=== PATIENT | female | born 1975 | race Caucasian/White ===

== ENCOUNTER 2017-09-24 10:26 | Outpatient (CLI) | payer OTHER ==
--- NOTE | 2017-09-25 16:31 | Mammography Report ---
DATE OF SERVICE: 09/24/2017 DIGITAL SCREENING MAMMOGRAM: 09/24/2017 CLINICAL INDICATION: A 42-year-old, for baseline. TECHNIQUE: Routine CC and MLO projections were obtained of the breasts. FINDINGS: The breasts demonstrate scattered fibroglandular densities bilaterally. No suspicious masses, clustered microcalcifications, or regions of architectural distortion are identified. IMPRESSION: NEGATIVE EXAMINATION. RECOMMENDATION: ROUTINE ANNUAL SCREENING UNLESS OTHERWISE CLINICALLY INDICATED. BIRADS CATEGORY 1-NEGATIVE. STANDARD QUALIFYING STATEMENTS: 1. This examination was reviewed with the aid of Computer-Aided Detection (CAD). 2. A negative or benign imaging report should not delay biopsy if clinically suspicious findings are present. Consider surgical consultation if warranted. More than 5% of cancers are not identified by imaging. 3. Dense breasts may obscure an underlying neoplasm. TD: 09/25/2017 17:29
== END 2017-09-24 10:27 | disposition home or self-care (01) ==
LOC: DI 10:26
PROVIDERS: ATTEND Physician Assistant Medical
DX: Z12.31 Encounter for screening mammogram for malignant neoplasm of breast (principal)
CPT/HCPCS: 77067

== ENCOUNTER 2017-12-15 13:24 | Emergency (ER) | payer OTHER ==
[2017-12-15 13:51] VITALS: BP 141/100
[2017-12-15] MEDS ORDERED: PROPARACAINE 0.5% OPHTH DROPS 15 ML EACHEYE STA (13:51)
--- NOTE | 2017-12-15 14:02 | ED Physician Documentation ---
PD HPI OPHTHO - Stated complaint Stated Complaint: R EYE F/O - Chief complaint Chief Complaint: Heent - History obtained from History obtained from: Patient - History of Present Illness Timing - onset: How many hours ago (3) Timing - duration: Hours (3) Timing - details: Gradual onset Pain level max: 5 Pain level now: 3 Location: Right Quality / character: Burning, Aching Associated symptoms: Redness, Tearing, FB sensation Contributing factors: Other (thinks she may have cat hair in her eye.). No: Wears glasses, Wears contacts Recently seen: Not recently seen Review of Systems Eyes: denies: Decreased vision, Photophobia Nose: denies: Rhinorrhea / runny nose, Congestion Throat: denies: Sore throat PD PAST MEDICAL HISTORY - Past Medical History Past Medical History: No - Past Surgical History Past Surgical History: No - Present Medications Home Medications: Ambulatory Orders Medication Instructions Recorded Confirmed No Known Home Medications [No 12/15/17 12/15/17 Known Home Medications] - Allergies Allergies/Adverse Reactions: Allergies Allergy/AdvReac Type Severity Reaction Status Date / Time No Known Drug Allergies Allergy Verified 12/15/17 13:45 - Social History Does the pt smoke?: No Smoking Status: Never smoker Does the pt drink ETOH?: No Does the pt have substance abuse?: No - Immunizations Immunizations are current?: Yes - POLST Patient has POLST: No PD ED PE NORMAL - Vitals Vital signs reviewed: Yes - General General: Alert and oriented X 3, No acute distress - HEENT HEENT: Moist mucous membranes, Other (R eye conjunctival injection. No fluoroscein uptake. No visible FB. Eyelids everted. ) - Neck Neck: Supple, no meningeal sign - Cardiac Cardiac: RRR - Respiratory Respiratory: No respiratory distress, Clear bilaterally - Neuro Neuro: Alert and oriented X 3 Results - Vitals Vitals: Vital Signs - 24 hr 12/15/17 13:46 Temperature 36.4 C L Heart Rate 69 Respiratory 16 Rate Blood Pressure 141/100 H O2 Saturation 100 Oxygen O2 Source Room air PD MEDICAL DECISION MAKING - ED course Complexity details: considered differential, d/w patient ED course: Patient is a 42-year-old female who presents to the emergency department with foreign body sensation in the right eye. No visible foreign body under Worthington lamp examination, no fluorescein uptake. Symptoms resolved with proparacaine and eye irrigation with eyewash station. Reexamined and still no foreign body visible or any fluorescein uptake. We will continue supportive care and follow- up with her doctor. Normal vision. Patient counseled regarding signs and symptoms for which I believe and urgent re-evaluation would be necessary. Patient with good understanding of and agreement to plan and is comfortable going home at this time This document was made in part using voice recognition software. While efforts are made to proofread this document, sound alike and grammatical errors may occur. Departure - Departure Disposition: 01 Home, Self Care Clinical Impression: Eye foreign body Qualifiers: Encounter type: initial encounter Laterality: right Qualified Code(s): T15.91XA - Foreign body on external eye, part unspecified, right eye, initial encounter Condition: Good Instructions: ED Eye Particle Conjunctiva FB Rslv Follow-Up: your,doctor as needed. [Other] Comments: Return if you worsen. Your eye may be slightly irritated from the irrigation today. Discharge Date/Time: 12/15/17 14:51
[2017-12-15] MEDS ORDERED: SODIUM CHLORIDE INHALATION 3 ML NEB ONE (14:59)
== END 2017-12-15 14:51 | disposition home or self-care (01) ==
LOC: ED 13:24
DX: T15.91XA Foreign body on external eye, part unspecified, right eye, initial encounter (principal)
CPT/HCPCS: 99283; J3490

== ENCOUNTER 2017-12-30 08:29 | Outpatient (CLI) | payer OTHER ==
--- NOTE | 2017-12-30 10:22 | CT Report ---
CT ABDOMEN AND PELVIS WITHOUT CONTRAST: 12/30/2017 CT DOSE REDUCTION STATEMENT In accordance with CT protocol optimization, one or more of the following dose reduction techniques were utilized for this exam: automated exposure control, adjustment of mA and/or KV based on patient size, or use of iterative reconstructive technique. CLINICAL INDICATION: Right-sided flank pain. TECHNIQUE: Axial CT images of the abdomen and pelvis were obtained without oral or intravenous contrast. No previous CT is available for comparison. FINDINGS: Limited evaluation of the lung bases is unremarkable. ABDOMEN: The kidneys are unremarkable, without evidence of nephrolithiasis or hydronephrosis. No hydroureter is seen. The liver demonstrates a small cyst in the superior right lobe. The spleen, pancreas and adrenal glands are unremarkable. The gallbladder is not dilated. No bowel dilatation, free gas, or free fluid is present. No abdominal adenopathy is seen. PELVIS: The appendix is seen in the right lower quadrant, and is normal in caliber. Colonic diverticulosis is present, without CT evidence of diverticulitis. The distal ureters and urinary bladder are unremarkable. No free fluid or pelvic adenopathy is seen. Osseous structures demonstrate degenerative changes. IMPRESSION: NO EVIDENCE OF NEPHROLITHIASIS OR HYDRONEPHROSIS. NORMAL APPENDIX. DIVERTICULOSIS, WITHOUT CT EVIDENCE OF DIVERTICULITIS. TD: 12/30/2017 10:21
== END 2017-12-30 08:30 | disposition home or self-care (01) ==
LOC: DI 08:29
PROVIDERS: ATTEND Family Medicine
DX: R10.9 Unspecified abdominal pain (principal)
CPT/HCPCS: 74176

== ENCOUNTER 2018-09-28 10:01 | Emergency (ER) | payer OTHER ==
[2018-09-28 10:38] LABS: BASOPHILS # (AUTO) 0.1 10^3/uL (0.0-0.1); BASOPHILS % (AUTO) 0.8 %; EOSINOPHILS # (AUTO) 0.1 10^3/uL (0.0-0.7); EOSINOPHILS % (AUTO) 1.2 %; HGB - HEMOGLOBIN 13.4 g/dL (12.0-16.0); LYMPHOCYTES # (AUTO) 1.3 10^3/uL (1.5-3.5); MEAN CORPUSCULAR HGB CONC 33.7 g/dL (32.0-36.0); MEAN PLATELET VOLUME 8.7 fL (7.9-10.8); MONOCYTES # (AUTO) 0.4 10^3/uL (0.0-1.0); MONOCYTES % (AUTO) 5.1 %; NEUTROPHILS # (AUTO) 6.7 10^3/uL (1.5-6.6); NEUTROPHILS % (AUTO) 77.9 %; PLT - PLATELET COUNT 188 10^3/uL (130-450); RED BLOOD COUNT 4.46 10^6/uL (4.20-5.40); WHITE BLOOD COUNT 8.6 x10^3/uL (4.8-10.8)
[2018-09-28 10:52] LABS: ALBUMIN 3.8 g/dL (3.2-5.5); ALBUMIN/GLOBULIN RATIO 1.1 (1.0-2.2); BILIRUBIN,TOTAL 0.7 mg/dL (0.2-1.0); CALCIUM 8.7 mg/dL (8.5-10.3); CREATININE 0.9 mg/dL (0.4-1.0); TOTAL PROTEIN 7.3 g/dL (6.7-8.2)
--- NOTE | 2018-09-28 11:40 | ED Physician Documentation ---
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 Review of Systems Constitutional: denies: Fever Eyes: denies: Decreased vision Ears: denies: Ear pain Nose: denies: Congestion Throat: denies: Sore throat Cardiac: denies: Chest pain / pressure, Palpitations Respiratory: denies: Dyspnea, Cough GI: denies: Abdominal Pain, Nausea, Vomiting : denies: Dysuria, Frequency Skin: denies: Rash Musculoskeletal: denies: Neck pain, Back pain, Extremity pain Neurologic: reports: Syncope, Head injury. denies: Generalized weakness, Focal weakness, Numbness, Difficulty speaking, Confused, Altered mental status PD PAST MEDICAL HISTORY - Past Medical History Past Medical History: No - Past Surgical History Past Surgical History: No - Present Medications Home Medications: Ambulatory Orders Medication Instructions Recorded Confirmed No Known Home Medications 12/15/17 09/28/18 - Allergies Allergies/Adverse Reactions: Allergies Allergy/AdvReac Type Severity Reaction Status Date / Time No Known Drug Allergies Allergy Verified 09/28/18 10:25 - Social History Does the pt smoke?: No Smoking Status: Never smoker Does the pt drink ETOH?: No Does the pt have substance abuse?: No - Immunizations Immunizations are current?: Yes - POLST Patient has POLST: No PD ED PE NORMAL - Vitals Vital signs reviewed: Yes (hypertensive ) - General General: Alert and oriented X 3, No acute distress, Well developed/nourished - HEENT HEENT: PERRL, EOMI, Ears normal, Moist mucous membranes, Pharynx benign, Dentition benign, Other (there is a bump to the occiput on the right side without crepitence or step off. 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, No motor deficit, No sensory deficit, Normal speech Eye Opening: Spontaneous Motor: Obeys Commands Verbal: Oriented GCS Score: 15 - Psych Psych: Normal mood, Normal affect Results - Vitals Vitals: Vital Signs - 24 hr 09/28/18 09/28/18 09/28/18 10:09 10:30 11:30 Temperature 36.8 C Heart Rate 66 60 62 Respiratory 20 16 16 Rate Blood Pressure 135/105 H 126/91 H 132/100 H O2 Saturation 99 100 Oxygen O2 Source Room air - EKG (time done) 1009 Rate: Rate (enter#) (66) Rhythm: NSR Ischemia: Q waves Compare to prior EKG: Old EKG unavailable Computer interpretation: Agree with computer - Labs Labs: Laboratory Tests 09/28/18 09/28/18 09/28/18 10:14 10:31 10:31 WBC 8.6 RBC 4.46 Hgb 13.4 Hct 39.7 MCV 89.0 MCH 30.0 MCHC 33.7 RDW 13.0 Plt Count 188 MPV 8.7 Neut # (Auto) 6.7 H Lymph # (Auto) 1.3 L [place] # (Auto) 0.4 Eos # (Auto) 0.1 Baso # (Auto) 0.1 Absolute Nucleated RBC 0.00 Nucleated RBC % 0.0 Sodium 138 Potassium 3.7 Chloride 106 Carbon Dioxide 23 Anion Gap 9.0 BUN 10 Creatinine 0.9 Estimated GFR (MDRD) 68 L Glucose 105 H POC Whole Bld Glucose 99 Calcium 8.7 Total Bilirubin 0.7 AST 18 ALT 19 Alkaline Phosphatase 63 Total Protein 7.3 Albumin 3.8 Globulin 3.5 Albumin/Globulin Ratio 1.1 Lipase 30 Procedures - IVC sono (time) 1130 Bedside IVC sono: IVC measures (cm) (1.68), IVC collapsed c insp (cm) (0.98), Euvolemia PD MEDICAL DECISION MAKING - ED course Complexity details: reviewed results, re-evaluated patient, considered di ffcharleneial, d/w patient, d/w family ED course: 43-year-old female with a syncopal episode after a noxious stimuli with something burning her stomach has had a head injury associated with this and she appears well now. Departure - Departure Disposition: 01 Home, Self Care Clinical Impression: Syncope, vasovagal Condition: Stable Instructions: ED Syncope Vasovagal Follow-Up: Tammie Antoine PA [Primary Care Provider] - Forms: Activity restrictions Discharge Date/Time: 09/28/18 12:10
[2018-09-28 11:58] VITALS: BP 132/100
== END 2018-09-28 12:10 | disposition home or self-care (01) ==
LOC: ED 10:01
DX: R55 Syncope and collapse (principal)
CPT/HCPCS: 36415; 80053; 83690; 85025; 93005; 99283; 99284

== ENCOUNTER 2018-10-03 14:58 | Outpatient (CLI) | payer OTHER ==
--- NOTE | 2018-10-03 15:45 | XRAY Report ---
Reason: COCCYX PAIN Procedure Date: 10/03/2018 Accession Number: [id number] / [id number] Procedure: WCP - Sacrum/Coccyx CPT Code: FULL RESULT: EXAM: SACRUM AND COCCYX RADIOGRAPHY EXAM DATE: 10/03/2018 03:28 PM. HISTORY: Coccyx pain. COMPARISONS: None. TECHNIQUE: 2 views. FINDINGS: Alignment: Normal. The sacrum and coccyx are normally aligned. Bones: Normal. No fracture or bone lesion. Joints: Normal. The sacroiliac joints and visualized hips are within normal limits. Soft Tissues: Unremarkable. IMPRESSION: Normal sacrum and coccyx radiography. RADIA
== END 2018-10-03 14:59 | disposition home or self-care (01) ==
LOC: DI.WCP 14:58
PROVIDERS: ATTEND Physician Assistant
DX: M53.3 Sacrococcygeal disorders, not elsewhere classified (principal)
CPT/HCPCS: 72220

== ENCOUNTER 2018-10-04 23:56 | Outpatient (CLI) | payer OTHER | END 2018-10-04 23:57 | disposition EMS.NT | LOC: EMS 23:56 | PROVIDERS: ATTEND Surgery | DX: R10.9 Unspecified abdominal pain (principal); R19.7 Diarrhea, unspecified; R45.0 Nervousness ==

== ENCOUNTER 2018-10-05 00:58 | Emergency (ER) | payer OTHER ==
[2018-10-05] MEDS ORDERED: ONDANSETRON 4 MG/2 ML VIAL IVP STA (01:20)
[2018-10-05] MEDS ORDERED: KETOROLAC 15 MG/ML VIAL IVP STA (01:20)
--- NOTE | 2018-10-05 01:31 | ED Physician Documentation ---
PD HPI ABD PAIN - Stated complaint Stated Complaint: UPPER ABDOMINAL PAIN - Chief complaint Chief Complaint: Abd Pain - History obtained from History obtained from: Patient - History of Present Illness Timing - onset: How many hours ago (3) Timing - duration: Hours (3) Timing - details: Gradual onset Pain level max: 8 Pain level now: 8 Quality: Aching, Pain Location: RUQ, Epigastric Radiation: No: Chest, , Lower back, Left flank, Left shoulder, Right flank, Right shoulder, Upper back Improved by: Other (nothing) Worsened by: Eating (tacos tonight) Associated symptoms: Nausea. 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 : None HEENT: None Psych: None Musculoskeletal: None Derm: None - Past Surgical History Past Surgical History: No - Present Medications Home Medications: Ambulatory Orders Medication Instructions Recorded Confirmed Ondansetron Odt [Zofran] 4 mg TL Q6H PRN #10 tablet 10/05/18 - Allergies Allergies/Adverse Reactions: Allergies Allergy/AdvReac Type Severity Reaction Status Date / Time No Known Drug Allergies Allergy Verified 10/05/18 01:18 - Social History Does the pt smoke?: No Smoking Status: Never smoker Does the pt drink ETOH?: Yes Does the pt have substance abuse?: No - Immunizations Immunizations are current?: Yes - POLST Patient has POLST: No PD ED PE NORMAL - Vitals Vital signs reviewed: Yes - General General: Alert and oriented X 3, No acute distress, Well developed/nourished - HEENT HEENT: Moist mucous membranes - Neck Neck: Supple, no meningeal sign - Cardiac Cardiac: RRR, Strong equal pulses - Respiratory Respiratory: No respiratory distress, Clear bilaterally - Abdomen Abdomen: Soft, Non distended, Other (Tender palpation right upper quadrant but negative Larry sign) - Back Back: No CVA TTP, No spinal TTP - Derm Derm: Warm and dry - Extremities Extremities: No edema - Neuro Neuro: Alert and oriented X 3 - Psych Psych: Normal mood, Normal affect Results - Vitals Vitals: Vital Signs - 24 hr 10/05/18 10/05/18 10/05/18 01:07 01:33 01:58 Temperature 36.4 C L Heart Rate 72 51 L 53 L Respiratory 18 17 17 Rate Blood Pressure 124/77 126/79 O2 Saturation 100 99 100 10/05/18 01:59 Temperature Heart Rate Respiratory 16 Rate Blood Pressure O2 Saturation Oxygen O2 Source Room air - Labs Labs: Laboratory Tests 10/05/18 10/05/18 01:26 01:26 WBC 12.5 H RBC 4.54 Hgb 13.6 Hct 40.4 MCV 89.0 MCH 29.9 MCHC 33.6 RDW 13.1 Plt Count 222 MPV 8.7 Neut # (Auto) 10.2 H Lymph # (Auto) 1.4 L [place] # (Auto) 0.6 Eos # (Auto) 0.1 Baso # (Auto) 0.1 Absolute Nucleated RBC 0.00 Nucleated RBC % 0.0 Sodium 138 Potassium 3.7 Chloride 105 Carbon Dioxide 25 Anion Gap 8.0 BUN 14 Creatinine 0.7 Estimated GFR (MDRD) 91 Glucose 127 H Calcium 8.9 Total Bilirubin 0.8 AST 48 H ALT 36 Alkaline Phosphatase 64 Total Protein 7.8 Albumin 3.8 Globulin 4.0 Albumin/Globulin Ratio 1.0 Lipase 40 PD MEDICAL DECISION MAKING - ED course Complexity details: reviewed results, re-evaluated patient, considered differential, d/w patient ED course: 43-year-old female with right upper quadrant abdominal pain after eating tacos tonight. She appears to have biliary colic. Bedside ultrasound reveals a gallbladder wall thickness of 0.32 cm. No pericholecystic fluid. Negative sonographic Laryr's. There is a solitary mobile gallstone. No ductal dilatation. Symptoms resolved in the emergency department. Abdomen is soft, nontender nondistended on serial exam. Did have a mild leukocytosis, but no fever. No evidence of acute cholecystitis clinically. Given her resolution of symptoms, we will have her follow-up closely with her doctor. Given return precautions. Formal ultrasound is unavailable in the emergency department tonight. December need an official outpatient ultrasound. Patient counseled regarding signs and symptoms for which I believe and urgent re-evaluation would be necessary. Patient with good understanding of and agreement to plan and is comfortable going home at this time This document was made in part using voice recognition software. While efforts are made to proofread this document, sound alike and grammatical errors may occur. Departure - Departure Disposition: 01 Home, Self Care Clinical Impression: Biliary colic Condition: Good Instructions: ED Gallstone W Biliary Colic Follow-Up: Arpit Cruz MD [Provider Admit Priv/Credential] - Tammie Antoine PA [Primary Care Provider] - Within 1 week Prescriptions: Ondansetron Odt [Zofran] 4 mg TL Q6H PRN #10 tablet PRN Reason: Nausea / Vomiting Comments: You appear to be having biliary colic. Please follow a low-fat diet to help decrease your symptoms. You will need your gallbladder likely removed. You should follow-up with a surgeon for further evaluation. You may need a referral from your primary care provider for this. Return if you worsen, especially for uncontrolled pain or fevers.
[2018-10-05 01:33] LABS: BASOPHILS # (AUTO) 0.1 10^3/uL (0.0-0.1); BASOPHILS % (AUTO) 0.5 %; EOSINOPHILS # (AUTO) 0.1 10^3/uL (0.0-0.7); HGB - HEMOGLOBIN 13.6 g/dL (12.0-16.0); LYMPHOCYTES # (AUTO) 1.4 10^3/uL (1.5-3.5); LYMPHOCYTES % (AUTO) 11.6 %; MEAN CORPUSCULAR HEMOGLOBIN 29.9 pg (27.0-31.0); MEAN CORPUSCULAR HGB CONC 33.6 g/dL (32.0-36.0); MEAN PLATELET VOLUME 8.7 fL (7.9-10.8); MONOCYTES # (AUTO) 0.6 10^3/uL (0.0-1.0); MONOCYTES % (AUTO) 4.9 %; NEUTROPHILS # (AUTO) 10.2 10^3/uL (1.5-6.6); PLT - PLATELET COUNT 222 10^3/uL (130-450); RED BLOOD COUNT 4.54 10^6/uL (4.20-5.40); RED CELL DISTRIBUTION WIDTH 13.1 % (12.0-15.0); WHITE BLOOD COUNT 12.5 x10^3/uL (4.8-10.8)
[2018-10-05 01:34] VITALS: BP 126/79
[2018-10-05 01:44] LABS: ALBUMIN 3.8 g/dL (3.2-5.5); BILIRUBIN,TOTAL 0.8 mg/dL (0.2-1.0); CALCIUM 8.9 mg/dL (8.5-10.3); CREATININE 0.7 mg/dL (0.4-1.0); TOTAL PROTEIN 7.8 g/dL (6.7-8.2)
== END 2018-10-05 02:10 | disposition home or self-care (01) ==
LOC: ED 00:58
DX: K80.20 Calculus of gallbladder without cholecystitis without obstruction (principal)
CPT/HCPCS: 36415; 80053; 83690; 85025; 96374; 99283; 99284

== ENCOUNTER 2018-10-10 09:25 | Outpatient (CLI) | payer OTHER ==
[2018-10-10 13:31] LABS: BASOPHILS # (AUTO) 0.1 10^3/uL (0.0-0.1); BASOPHILS % (AUTO) 1.2 %; EOSINOPHILS # (AUTO) 0.1 10^3/uL (0.0-0.7); EOSINOPHILS % (AUTO) 2.1 %; LYMPHOCYTES # (AUTO) 1.7 10^3/uL (1.5-3.5); LYMPHOCYTES % (AUTO) 29.1 %; MEAN CORPUSCULAR HEMOGLOBIN 30.1 pg (27.0-31.0); MEAN CORPUSCULAR HGB CONC 33.9 g/dL (32.0-36.0); MEAN CORPUSCULAR VOLUME 88.8 fL (81.0-99.0); MEAN PLATELET VOLUME 9.2 fL (7.9-10.8); MONOCYTES # (AUTO) 0.4 10^3/uL (0.0-1.0); MONOCYTES % (AUTO) 6.6 %; NEUTROPHILS # (AUTO) 3.7 10^3/uL (1.5-6.6); PLT - PLATELET COUNT 254 10^3/uL (130-450); RED BLOOD COUNT 4.64 10^6/uL (4.20-5.40); RED CELL DISTRIBUTION WIDTH 12.6 % (12.0-15.0)
[2018-10-10 13:59] LABS: ALBUMIN 4.1 g/dL (3.2-5.5); ALBUMIN/GLOBULIN RATIO 1.1 (1.0-2.2); BILIRUBIN,TOTAL 1.1 mg/dL (0.2-1.0); CALCIUM 9.4 mg/dL (8.5-10.3); CREATININE 0.8 mg/dL (0.4-1.0); TOTAL PROTEIN 7.8 g/dL (6.7-8.2)
== END 2018-10-10 09:26 | disposition home or self-care (01) ==
LOC: LAB.WCP 09:25
PROVIDERS: ATTEND Physician Assistant
DX: R10.11 Right upper quadrant pain (principal)
CPT/HCPCS: 36415; 80053; 85025

== ENCOUNTER 2018-10-15 19:31 | Outpatient (CLI) | payer OTHER ==
--- NOTE | 2018-10-16 09:18 | Ultrasound Report ---
Reason: ABDOMINAL PAIN, RUQ Procedure Date: 10/15/2018 Accession Number: [id number] / [id number] Procedure: US - Abdomen Limited CPT Code: FULL RESULT: EXAM: ABDOMEN ULTRASOUND LIMITED, RUQ EXAM DATE: 10/15/2018 08:25 PM. CLINICAL HISTORY: Abdominal pain, right upper quadrant. COMPARISON: Abdomen/pelvis w/o contrast 12/30/2017 8:41 AM. TECHNIQUE: Real-time scanning was performed with static images obtained. FINDINGS: Liver: Mildly echogenic hepatic parenchyma. There is a cyst adjacent to the measuring 1.1 x 0.8 x 1 cm cyst. No solid hepatic lesions. No intrahepatic ductal dilatation. The liver is not enlarged, 14 cm. Main portal vein flow: Hepatopetal. Gallbladder: Mobile echogenic 0.8 cm focus is seen in the gallbladder, consistent with a gallstone. No gallbladder wall thickening. No pericholecystic fluid. Biliary System: CBD measures 4 mm. No intrahepatic or extrahepatic ductal dilatation. Other: Right kidney is normal in contour and echotexture and measures 11.2 cm. No hydronephrosis. In the upper pole of the right kidney is a 1.3 x 1.0 x 0.8 cm cyst and in the mid right kidney is a 1.1 x 0.9 x 0.9 cm cyst. No hydronephrosis. Visualized portions of the pancreas are unremarkable. The entire pancreas is not seen. The visualized abdominal aorta is normal in caliber. IMPRESSION: 1. Mild echogenic hepatic parenchyma, findings typically seen with fatty replacement. Hepatic cyst. No solid hepatic lesions. 2. Cholelithiasis. No sonographic evidence of cholecystitis. 3. No biliary ductal dilatation. 4. Right renal cysts. RADIA
== END 2018-10-15 19:32 | disposition home or self-care (01) ==
LOC: DI 19:31
PROVIDERS: ATTEND Physician Assistant
DX: R10.11 Right upper quadrant pain (principal); K80.20 Calculus of gallbladder without cholecystitis without obstruction; N28.1 Cyst of kidney, acquired
CPT/HCPCS: 76705

== ENCOUNTER 2020-12-05 07:00 | Outpatient (CLI) | payer OTHER ==
--- NOTE | 2020-12-05 13:28 | XRAY Report ---
PROCEDURE: Elbow 2 View LT INDICATIONS: STRAIN OF UNSPECIFIED MUSCLES, FASCIA AND TENDONS OF L ARM TECHNIQUE: 2 views of the elbow were acquired. COMPARISON: None. FINDINGS: Bones: No fractures or dislocations. No suspicious bony lesions. Soft tissues: No elbow joint effusion. No suspicious soft tissue calcifications. IMPRESSION: Normal for age. Reviewed by: Flakito Lafleur MD on 12/05/2020 1:27 PM PDT Approved by: Flakito Lafleur MD on 12/05/2020 1:27 PM PDT Station ID: [id number]
== END 2020-12-05 23:59 | disposition home or self-care (01) ==
LOC: DI.N 07:00
PROVIDERS: ATTEND Nurse Practitioner
DX: S56.912A Strain of unspecified muscles, fascia and tendons at forearm level, left arm, initial encounter (principal)

== ENCOUNTER 2021-10-17 08:03 | Outpatient (CLI) | payer OTHER ==
[2021-10-17 13:15] LABS: BASOPHILS % (AUTO) 0.5 %; EOSINOPHILS # (AUTO) 0.2 10^3/uL (0.0-0.7); EOSINOPHILS % (AUTO) 2.1 %; HGB - HEMOGLOBIN 14.5 g/dL (12.0-16.0); LYMPHOCYTES # (AUTO) 2.1 10^3/uL (1.5-3.5); LYMPHOCYTES % (AUTO) 25.7 %; MEAN CORPUSCULAR HEMOGLOBIN 30.5 pg (27.0-31.0); MEAN CORPUSCULAR HGB CONC 32.2 g/dL (32.0-36.0); MEAN CORPUSCULAR VOLUME 94.7 fL (81.0-99.0); MEAN PLATELET VOLUME 11.7 fL (7.9-10.8); MONOCYTES # (AUTO) 0.5 10^3/uL (0.0-1.0); MONOCYTES % (AUTO) 5.8 %; NEUTROPHILS # (AUTO) 5.4 10^3/uL (1.5-6.6); NEUTROPHILS % (AUTO) 65.7 %; PLT - PLATELET COUNT 220 10^3/uL (130-450); RED BLOOD COUNT 4.75 10^6/uL (4.20-5.40); RED CELL DISTRIBUTION WIDTH 12.3 % (12.0-15.0); WHITE BLOOD COUNT 8.1 x10^3/uL (4.8-10.8)
[2021-10-17 13:49] LABS: THYROID STIMULATING HORMONE 2.93 uIU/mL (0.34-5.60)
[2021-10-17 13:59] LABS: ALBUMIN/GLOBULIN RATIO 1.2 (1.0-2.2); ALKALINE PHOSPHATASE 58 IU/L (42-121); ALT ALANINE AMINOTRANSFERASE 14 IU/L (10-60); AST ASPARTATE AMINOTRANSFERASE 15 IU/L (10-42); BUN - BLOOD UREA NITROGEN 9 mg/dL (6-20); CALCIUM 9.1 mg/dL (8.5-10.3); CARBON DIOXIDE - CO2 28 mmol/L (21-32); CHLORIDE 101 mmol/L (101-111); CHOL/HDL RATIO 2.4 (<4.4); CHOLESTEROL 216 mg/dL; CREATININE 0.8 mg/dL (0.4-1.0); GAMMA GLUTAMYL TRANSPEPTIDASE 11 IU/L (8-38); GFR - MDRD 77 (>89); GLUCOSE 85 mg/dL (70-100); HDL CHOLESTEROL 89 mg/dL; LDL CHOLESTEROL,CALCULATED 101 mg/dL; LDL/HDL RATIO 1.1 (<4.4); SODIUM 137 mmol/L (135-145); TOTAL PROTEIN 7.3 g/dL (6.7-8.2); TRIGLYCERIDES 128 mg/dL; VLDL CHOLESTEROL 26 mg/dL
[2021-10-17 20:31] LABS: ESTIMATED AVERAGE GLUCOSE 100 mg/dL (70-100); HEMOGLOBIN A1c% 5.1 % (4.27-6.07)
== END 2021-10-17 08:04 | disposition home or self-care (01) ==
LOC: LAB.N 08:03
PROVIDERS: ATTEND Physician Assistant
DX: K76.0 Fatty (change of) liver, not elsewhere classified (principal); Z13.220 Encounter for screening for lipoid disorders; K80.20 Calculus of gallbladder without cholecystitis without obstruction; Z13.1 Encounter for screening for diabetes mellitus; L50.9 Urticaria, unspecified; Z13.29 Encounter for screening for other suspected endocrine disorder
CPT/HCPCS: 36415; 80053; 80061; 82239; 82977; 83036; 83721; 84443; 85025

== ENCOUNTER 2022-11-14 09:37 | Outpatient (CLI) | payer OTHER ==
--- NOTE | 2022-11-14 18:04 | XRAY Report ---
PROCEDURE: Thoracic Spine 3 View INDICATIONS: THORACIC BACK PX TECHNIQUE: 3 views of the thoracic spine were acquired. COMPARISON: None. FINDINGS: Bones: No fractures or dislocations. No suspicious bony lesions. 12 pairs of ribs are noted, and a ppear intact where visualized. Soft tissues: No paravertebral stripe thickening. IMPRESSION: No evidence acute bony abnormality of the thoracic spine. Reviewed by: Bharath Lafleur MD on 11/14/2022 6:03 PM PDT Approved by: Bharath Lafleur MD on 11/14/2022 6:03 PM PDT Station ID: [id number]
== END 2022-11-14 09:38 | disposition home or self-care (01) ==
LOC: DI 09:37
PROVIDERS: ATTEND Physician Assistant
DX: M54.6 Pain in thoracic spine (principal)